=== PATIENT | male | born 1970 | race African-American/Black ===

== ENCOUNTER 2023-04-22 14:58 | Emergency (ER) | payer MEDICAID, OTHER ==
[~2023-04-22] VITALS: Ht 182.9 cm; Wt 100.0 kg
[2023-04-22] MEDS ORDERED: METHYLPREDNISOLONE SOD SUCC 40MG/ML (ACT-O-VIAL) IV NR (16:00)
[2023-04-22] MEDS ORDERED: METHYLPREDNISOLONE SOD SUCC 40MG VIAL IV ONE (16:00)
[2023-04-22] MEDS ORDERED: IPRATROPIUM/ALBUTEROL 0.5-3(2.5)MG/3ML NEB HHN ONE (16:00)
[2023-04-22 16:24] VITALS: PULSE 62; RESP 22; O2SAT 98
[2023-04-22 16:27] LABS: BG BASE EXCESS -0.4 mmol/L (-2.0-2.0); BG CARBOXYHEMOGLOBIN 1.3 % (0.5-1.5); BG DEOXYHEMOGLOBIN 5.1 % (0.0-5.0); BG HCO3 ACT 24.7 mmol/L (22.0-26.0); BG METHEMOGLOBIN 0.4 % (0.0-1.5); BG OXYGEN SATURATION 94.8 % (92.0-98.5); BG OXYHEMOGLOBIN 93.2 % (94.0-97.0); BG PCO2 42.2 mmHg (35.0-45.0); BG PH 7.386 (7.350-7.450); BG PO2 70.4 mmHg (75.0-100.0); BG SAMPLE SITE RIGHT RADIAL; BG TOTAL HEMOGLOBIN 16.7 g/dL (12.0-18.0); BG VENT MODE ROOM AIR
[2023-04-22 16:51] LABS: BASOPHILS % 1.3 % (0.0-2.0); EOSINOPHILS % 4.6 % (0.0-5.0); HEMATOCRIT. 47.5 % (42.0-52.0); HEMOGLOBIN. 15.5 g/dL (14.0-18.0); LYMPHOCYTES % 33.4 % (20.0-50.0); MEAN CORPUSCULAR HEMOGLOBIN 32.1 pg (28.0-32.0); MEAN CORPUSCULAR HGB CONC 32.7 g/dL (31.0-37.0); MEAN PLATELET VOLUME 6.9 fl (7.4-10.4); MONOCYTES % 9.5 % (2.0-8.0); NEUTROPHILS % 51.2 % (40.0-76.0); PLATELET 218 x1000/uL (130-400); RED BLOOD CELL COUNT 4.84 mill/uL (4.7-6.1); RED CELL DISTRIBUTION WIDTH 15.8 % (11.6-14.6); WHITE BLOOD COUNT 6.8 x1000/uL (4.5-11.0)
[2023-04-22 17:01] LABS: D-DIMER 0.19 mg/L FEU (<0.50); INR 1.1; PROTHROMBIN TIME 11.6 sec (9.6-11.0)
[2023-04-22 17:08] LABS: ALANINE AMINOTRANSFERASE 33 IU/L (10-49); ALBUMIN 4.6 g/dL (3.2-4.8); ASPARTATE AMINOTRANSFERASE 29 IU/L (<34); BILIRUBIN TOTAL 0.7 mg/dL (0.1-1.0); CALCIUM 9.6 mg/dL (8.7-10.4); CARBON DIOXIDE 29 mEq/L (21-32); CHLORIDE 105 mEq/L (98-107); CREATININE 0.8 mg/dL (0.6-1.3); GLUCOSE 75 mg/dL (70-105); POTASSIUM 4.2 mEq/L (3.5-5.1); PROTEIN TOTAL 7.4 g/dL (6.0-8.3); SODIUM 139 mEq/L (136-145); TROPONIN I HIGH SENSITIVITY 9 ng/L (3.0-53); UREA NITROGEN BLOOD 7 mg/dL (9-23)
[2023-04-22 18:05] VITALS: BP 163/138; PULSE 54; RESP 20; TEMP 98
[2023-04-22] MEDS ORDERED: P50 MT (18:46)
[2023-04-22] MEDS ORDERED: TOPUD MT (18:46)
[2023-04-22] MEDS ORDERED: ALBU90AE INH (18:46)
== END 2023-04-22 19:21 | disposition home or self-care (01) ==
LOC: ER 14:58
DX: J44.1 Chronic obstructive pulmonary disease with (acute) exacerbation (principal); I10 Essential (primary) hypertension
CPT/HCPCS: 80053; 85025; 85379; 85610; 84484; 36415; 71045; 94640; 82805; 82375; 93005; 96374; 99285; 36600; J2920; Z7610 ×7

== ENCOUNTER 2023-07-16 16:52 | Emergency (ER) | payer OTHER ==
[~2023-07-16] VITALS: Ht 175.3 cm; Wt 101.0 kg
[~2023-07-16 16:52] MED LIST: ALBU90AE INH; P50 MT; TOPUD MT
[2023-07-16] MEDS ORDERED: IPRATROPIUM BROMIDE (0.02%) 0.5MG/2.5ML NEB HHN STA (17:13)
[2023-07-16] MEDS ORDERED: ALBUTEROL (0.083%) 2.5MG/3ML NEB HHN STA (17:13)
[2023-07-16] MEDS ORDERED: METHYLPREDNISOLONE SOD SUCC 125MG/2ML (ACT-O-VIAL) IV STA (17:13)
[2023-07-16 19:22] LABS: BASOPHILS % 0.9 % (0.0-2.0); HEMATOCRIT. 44.8 % (42.0-52.0); HEMOGLOBIN. 15.5 g/dL (14.0-18.0); LYMPHOCYTES % 36.3 % (20.0-50.0); MEAN CORPUSCULAR HEMOGLOBIN 32.5 pg (28.0-32.0); MEAN CORPUSCULAR HGB CONC 34.5 g/dL (31.0-37.0); MEAN CORPUSCULAR VOLUME 94.1 fL (80.0-94.0); MEAN PLATELET VOLUME 6.7 fl (7.4-10.4); MONOCYTES % 9.7 % (2.0-8.0); NEUTROPHILS % 49.1 % (40.0-76.0); PLATELET 250 x1000/uL (130-400); RED BLOOD CELL COUNT 4.76 mill/uL (4.7-6.1); WHITE BLOOD COUNT 5.8 x1000/uL (4.5-11.0)
[2023-07-16 19:36] LABS: ALANINE AMINOTRANSFERASE 45 IU/L (10-49); ALBUMIN 5.2 g/dL (3.2-4.8); ASPARTATE AMINOTRANSFERASE 40 IU/L (<34); BILIRUBIN TOTAL 0.7 mg/dL (0.1-1.0); CALCIUM 9.6 mg/dL (8.7-10.4); CARBON DIOXIDE 31 mEq/L (21-32); CHLORIDE 108 mEq/L (98-107); CREATININE 1.1 mg/dL (0.6-1.3); GLUCOSE 80 mg/dL (70-105); POTASSIUM 3.5 mEq/L (3.5-5.1); SODIUM 140 mEq/L (136-145); TROPONIN I HIGH SENSITIVITY 4 ng/L (3.0-53); UREA NITROGEN BLOOD 10 mg/dL (9-23)
[2023-07-16 21:15] VITALS: PULSE 54; RESP 16; O2SAT 95
[2023-07-16] MEDS: ALBUTEROL (0.083%) 2.5MG/3ML NEB HHN STA (21:15)
[2023-07-16] MEDS: IPRATROPIUM BROMIDE (0.02%) 0.5MG/2.5ML NEB HHN STA (21:15)
[2023-07-16] MEDS ORDERED: ALBU6.7H15 INH (21:44)
[2023-07-16] MEDS ORDERED: P50 MT (21:44)
[2023-07-16] MEDS: PREDNISONE 20MG TABLET PO STA (21:58)
[2023-07-16 22:50] VITALS: BP 144/90; PULSE 60; RESP 16; TEMP 98
== END 2023-07-16 22:52 | disposition home or self-care (01) ==
LOC: ER 16:52
DX: J44.1 Chronic obstructive pulmonary disease with (acute) exacerbation (principal); I10 Essential (primary) hypertension; Z98.890 Other specified postprocedural states
CPT/HCPCS: 80053; 83880; 85025; 85379; 84484; 36415; 71045; 93005; 94644; 99285; J7512; Z7610 ×3

== ENCOUNTER 2023-08-04 07:43 | Emergency (ER) | payer OTHER ==
[~2023-08-04] VITALS: Ht 175.3 cm; Wt 88.0 kg
[~2023-08-04 07:43] MED LIST changes: +ALBU6.7H15 INH
[2023-08-04 07:51] VITALS: BP 150/86; PULSE 62; RESP 16; TEMP 98.5; O2SAT 98
== END 2023-08-04 10:32 | disposition left against medical advice (07) ==
LOC: ER 07:43
DX: R06.81 Apnea, not elsewhere classified (principal); Z53.21 Procedure and treatment not carried out due to patient leaving prior to being seen by health care provider
CPT/HCPCS: 93005; 99281

== ENCOUNTER 2023-12-02 10:02 | Emergency (ER) | payer OTHER ==
[2023-12-02 10:12] VITALS: PULSE 86; RESP 20; O2SAT 97
== END 2023-12-02 11:35 | disposition left against medical advice (07) ==
LOC: ER 10:02
DX: R06.02 Shortness of breath (principal); Z53.21 Procedure and treatment not carried out due to patient leaving prior to being seen by health care provider